=== PATIENT | female | born 1965 | race African-American/Black ===

== ENCOUNTER 2016-07-16 16:42 | Emergency (ER) | payer SELFPAY ==
[~2016-07-16] VITALS: Ht 172.7 cm; Wt 113.4 kg
[2016-07-16] MEDS ORDERED: IBUPROFEN 400 MG TABLET PO ONE (20:30)
[2016-07-16] MEDS ORDERED: IBUPROFEN 400 MG TABLET ONE (20:34)
[2016-07-16 22:59] VITALS: BP 130/80
== END 2016-07-16 23:01 | disposition home or self-care (01) ==
LOC: ER 16:45
DX: I83.018 Varicose veins of right lower extremity with ulcer other part of lower leg (principal); L97.819 Non-pressure chronic ulcer of other part of right lower leg with unspecified severity; F29 Unspecified psychosis not due to a substance or known physiological condition
CPT/HCPCS: 99283; A4606; A6402; Z7610